=== PATIENT | female | born 1965 | race Caucasian/White ===

== ENCOUNTER → 2022-05-10 | Day surgery (SDC) | payer OTHER ==
[~2022-05-10] VITALS: Ht 157.5 cm; Wt 60.8 kg
[~2022-05-10] MED LIST: HCTZ25 MG PO; LIPITOR20 MG PO; NORCO 5-325 TA1 EACH PO; ONDANSETRON ODT8 MG PO; PRINIVIL20 MG PO; VITAMIN D3125 MCG PO
[2022-05-10 08:33] LABS: HCT 44.6 % (37.0-47.0); HGB 15.1 g/dl (12.5-16.0); MCH 33.3 pg (25.0-31.0); MCHC 33.9 g/dL (32.0-36.0); MCV 98.5 fL (78.0-100.0); MPV 9.5 fL (6.0-9.5); RBC 4.53 M/uL (4.20-5.40); RDW 12.3 % (11.5-14.0); WBC 10.4 K/uL (4.0-10.5)
[2022-05-10 08:37] LABS: ALBUMIN 4.1 g/dL (3.4-5.0); BILIRUBIN - TOTAL 0.7 mg/dL (0.2-1.0); BUN/CREAT RATIO (CALC) 19.6 RATIO; CREATININE 0.56 mg/dL (0.51-0.95); GLOBULIN (CALCULATION) 4.4 g/dL; POTASSIUM 4.6 mmol/L (3.5-5.1); TOTAL PROTEIN 8.5 g/dL (6.4-8.2)
== END | disposition home or self-care (01) ==
LOC: FAS 07:49
PROVIDERS: Surgery
DX: K64.1 Second degree hemorrhoids (principal); K57.30 Diverticulosis of large intestine without perforation or abscess without bleeding; I10 Essential (primary) hypertension; F17.210 Nicotine dependence, cigarettes, uncomplicated; Z88.1 Allergy status to other antibiotic agents; Z79.899 Other long term (current) drug therapy
CPT/HCPCS: 36415; 80053; J1100; J1610; J2250; J2704; J7120